=== PATIENT | male | born 1985 | race Caucasian/White ===

== ENCOUNTER → 2016-04-14 | Outpatient (REF) | payer OTHER ==
[2016-04-14 12:58] LABS: % NORMAL FORMS 6 % (>=4); IMMOTILITY 59 %; NON PROGRESSIVE MOTILITY (c) 12 %; PROGRESSIVE MOTILITY (a) 29 % (>=32); SPERM# 285.1 M/Ejac (33-46); TOTAL FUNCTIONAL 12.5 M/Ejac.; TOTAL MOTILITY 41 % (>=40); TOTAL PROGRESSIVE SPERM 83.4 M/Ejac.
== END ==
LOC: M SMT 12:47
PROVIDERS: ATTEND Nurse Practitioner Women's Health
DX: N46.9 Male infertility, unspecified (principal)
CPT/HCPCS: 89320; G0463

== ENCOUNTER → 2016-05-19 | Outpatient (CLI) | payer OTHER ==
[2016-05-19 13:19] LABS: LUTEINIZING HORMONE 4.7 mIU/mL (1.5-9.3); PROLACTIN 3.5 NG/ML (2.1-17.7)
[2016-05-19 13:20] LABS: ESTRADIOL 32.7 PG/ML (<39.8); FOLLICLE STIMULATING HORMONE 5.6 mIU/mL (1.4-18.1)
--- NOTE | 2016-05-19 15:09 | REP ---
HIGH-RESOLUTION BILATERAL SCROTAL SONOGRAPHY: HISTORY: Testicular pain. FINDINGS: High-resolution bilateral scrotal sonography demonstrates no evidence of intratesticular mass lesion on either side. Testicular sonographic texture is normal and homogeneous. The right testis measures 4.3 x 2.5 x 2.8 cm. Left testicular dimensions are 4.6 x 3.0 x 2.7 cm. There are tiny cystic areas in the head of each epididymis. A very small amount of hydrocele fluid is seen bilaterally. No intratesticular mass lesion is seen. Testicular Doppler flow is normal bilaterally. Resistive indices are 0.56 on the right and 0.52 on the left. IMPRESSION: Very small bilateral hydroceles. Tiny epididymal cysts. No significant intrascrotal abnormality. Signed by Homero Paredes MD 05/19/2016 04:22 P
== END ==
LOC: M SMT 08:19
PROVIDERS: ATTEND Nurse Practitioner Women's Health
DX: N46.9 Male infertility, unspecified (principal); N50.819 Testicular pain, unspecified; N43.3 Hydrocele, unspecified; N50.3 Cyst of epididymis

== ENCOUNTER → 2016-09-27 | Outpatient (REF) | payer OTHER ==
[2016-09-27 15:29] LABS: % NORMAL FORMS 6 % (>=4); IMMOTILITY 54 %; NON PROGRESSIVE MOTILITY (c) 15 %; PROGRESSIVE MOTILITY (a) 31 % (>=32); SPERM ABNORMAL FORMS WBC'S NOTED; SPERM# 206.2 M/Ejac (33-46); TOTAL MOTILITY 46 % (>=40); TOTAL PROGRESSIVE SPERM 63.7 M/Ejac.
[2016-09-27 15:30] LABS: TOTAL FUNCTIONAL 9.3 M/Ejac.
== END ==
LOC: M SMT 15:26
PROVIDERS: ATTEND Urology
DX: N46.9 Male infertility, unspecified (principal)